=== PATIENT | female | born 2000 | race Caucasian/White ===

== ENCOUNTER 2019-01-29 12:28 | Inpatient (IN) | payer MEDICAID, OTHER ==
[~2019-01-29] VITALS: Ht 149.9 cm; Wt 61.2 kg
--- NOTE | 2019-01-29 12:32 | NUR ---
PATIENT AMBULATED TO BED 11
[2019-01-29 12:36] VITALS: BP 118/74
[2019-01-29] MEDS ORDERED: NACL 0.9% 1,000 ML IV SCH (12:49)
[2019-01-29] MEDS ORDERED: MORPHINE SULFATE 4 MG/ML SYR IVP ONE (12:50)
[2019-01-29] MEDS ORDERED: ONDANSETRON 4 MG/2 ML VIAL IVP ONE (12:50)
--- NOTE | 2019-01-29 12:51 | NUR ---
C/O GENERALIZED ABD PAIN X4 QUADRANTS STARTING TODAY, 12/18 AND CRAMPING ACCOMPANIED BY N/V. LBM TODAY - REGULAR PER PT. BOWEL SOUNDS PRESENT X4, ABDOMEN SOFT, FLAT AND TENDER TO PALPATION. BED IN LOW POSITION. SIDE RAIL UP X1,
--- NOTE | 2019-01-29 13:10 | NUR ---
PT RQ ONLY 1/2 DOSE OF MORPHINE TO BE GIVEN. GAVE PT 0.5MG, OKTHALIA'D BY DR. TATE
[2019-01-29 13:27] LABS: HEMOGLOBIN 14.4 g/dL (12.0-16.0); MEAN CORPUSCULAR HEMOGLOBIN 30 pg (27-31); MEAN CORPUSCULAR HGB CONC 34 g/dL (33-37); MEAN CORPUSCULAR VOLUME 88.5 fL (80-94); PLATELET COUNT (AUTO) 399 K/uL (140-450); RED BLOOD CELL COUNT(AUTO) 4.75 MIL/uL (4.20-5.40); RED CELL DISTRIBUTION WIDTH 12.5 % (11.6-13.7); WHITE BLOOD COUNT (AUTO) 15.7 K/uL (4.5-11.0)
[2019-01-29 13:37] LABS: BILIRUBIN,URINE 1+ (NEGATIVE); COLOR,URINE YELLOW (YELLOW); LEUKOCYTE ESTERASE ,URINE NEGATIVE (NEGATIVE); NITRITE, URINE NEGATIVE (NEGATIVE); UGLUCOSE NEGATIVE (NEGATIVE)
[2019-01-29 14:06] LABS: POTASSIUM 3.7 mmol/L (3.5-5.1)
[2019-01-29 14:07] LABS: ANION GAP 16.5 (8-16); CARBON DIOXIDE 22.2 mmol/L (21-32); CREATININE 0.6 mg/dL (0.6-1.3)
[2019-01-29 14:12] LABS: TOTAL BILIRUBIN 0.4 mg/dL (0.0-1.0)
[2019-01-29 14:13] LABS: ALBUMIN 3.9 g/dL (3.4-5.0)
[2019-01-29 14:14] LABS: LYMPHOCYTES % (MANUAL) 9 % (20-46); MONOCYTES % (MANUAL) 4 % (5-12)
[2019-01-29 14:15] LABS: BLOOD, URINE 1+ (NEGATIVE)
--- NOTE | 2019-01-29 14:15 | NUR ---
PT LEFT TO CT
[2019-01-29 14:16] LABS: RBC,URINE 0-5 /HPF (0-5); WBC,URINE 0-5 /HPF (0-5)
[2019-01-29 14:17] LABS: YEAST,URINE Rare /HPF (None Seen)
[2019-01-29 14:18] LABS: APPEARANCE,URINE SLIGHTLY HAZY (CLEAR)
--- NOTE | 2019-01-29 14:30 | NUR ---
PT RETURNED FROM CT
--- NOTE | 2019-01-29 14:48 | NUR ---
ADMINISTERED OTHER 2MG OF MORPHINE PER PT REQUEST FOR PAIN PER DR. TATE VERBAL ORDER.
[2019-01-29] MEDS ORDERED: PIPERACILLIN/TAZOBACTAM 3.375 GM in DEXTROSE 5% 50 ML IV ONE (14:50)
--- NOTE | 2019-01-29 15:00 | NUR ---
RE-EVAL OF 2MG MORPHINE, NADR
[2019-01-29] MEDS ORDERED: [UNRECOGNIZED DRUG - REMARK] PO (15:08)
[2019-01-29] MEDS ORDERED: PIPERACILLIN/TAZOBACTAM 3.375 GM VIAL IV ONE ×2 (15:13→21:34)
[2019-01-29] MEDS ORDERED: [UNRECOGNIZED DRUG - CODE] PO (15:23)
--- NOTE | 2019-01-29 15:45 | NUR ---
Patient will be admitted to care of DR. MCBRIDE. Admited to MED SURG. Will go to [facility]. Belongings list completed. Report to [facility].
[2019-01-29 15:50] VITALS: BP 105/76
--- NOTE | 2019-01-29 15:50 | NUR ---
RECEIVED PT FROM ER NURSE, PT IS AWAKE AND AMBULATED TO THE BED, IV LINE ON THE RT AC G. 20 ON SALINE LOCK, PT C/O PAIN OF A 6/10 RATE, VITAL SIGNS TAKEN AND IS STABLE, NO SIGN OF DISTRESS NOTED AND WILL MONITOR PT.
--- NOTE | 2019-01-29 15:56 | NUR ---
PT SIGNED THE CONSENT FOR LAPAROSCOPIC APPENDECTOMY WITH POSSIBLE OPEN, DR. MARKHAM CAME TO PT'S ROOM AND SPOKE TO PT AND PT VERBALIZED UNDERSTANDING.
--- NOTE | 2019-01-29 16:09 | NUR ---
DR. MCBRIDE CALLED AND MADE A TELEPHONE ORDER FOR THE PT. ORDERS READ BACK AND VERIFIED AND POSTED.
[2019-01-29] MEDS ORDERED: MORPHINE SULFATE 2 MG/ML SYR IVP PRN (16:15)
[2019-01-29] MEDS ORDERED: ONDANSETRON 4 MG/2 ML VIAL IVP PRN ×2 (16:15→21:20)
[2019-01-29] MEDS: LACTATED RINGERS 1,000 ML IV SCH ×3 (16:45→22:45)
--- NOTE | 2019-01-29 16:45 | NUR ---
MRSA SWAB DONE TO PT AND SAMPLE WAS SENT TO LAB.
[2019-01-29] MEDS ORDERED: PIPERACILLIN/TAZOBACTAM 3.375 GM in DEXTROSE 5% 50 ML IV SCH (18:00)
--- NOTE | 2019-01-29 18:50 | NUR ---
PRE-OP CHECKLIST DONE NOW.
--- NOTE | 2019-01-29 19:15 | NUR ---
ENDORSED PT TO NIGHTSHIFT NURSEARISTEO FOR CONTINUITY OF CARE.
--- NOTE | 2019-01-29 19:16 | NUR ---
RECD. RESTING IN BED, AWAKE, A/OX4. AMBULATORY TO BR. RESPIRATION EVEN AND UNLABORED. IV OF LR AT 150 ML/HR INFUSING RIGHT AC G20. AWARE OF PLANNED SURGERY TONIGHT. DENIES PAIN 0/10.
[2019-01-29 20:00] VITALS: BP 110/75
--- NOTE | 2019-01-29 20:00 | NUR ---
Patient's Plan of Care was discussed and reviewed with NUCLEAR POWERPLANT MECHANIC HELPER: Stephany Jacobs
--- NOTE | 2019-01-29 20:05 | NUR ---
TAKEN TO OR FOR LAP APPENDECTOMY ACCOMPANIED BY OR NURSES.
[2019-01-29] MEDS ORDERED: LIDOCAINE 1% 500 MG/50 ML VIAL ONE (20:09)
[2019-01-29] MEDS ORDERED: BUPIVACAINE-MPF 0.5% 30 ML VIAL INJ ONE (20:10)
[2019-01-29] MEDS ORDERED: BUPIVACAINE-MPF 0.25% 30 ML VIAL INJ ONE (20:11)
[2019-01-29] MEDS ORDERED: GLYCOPYRROLATE 0.2 MG/ML VIAL ONE (20:45)
[2019-01-29] MEDS ORDERED: ROCURONIUM 50 MG/5 ML VIAL IV ONE (20:45)
[2019-01-29] MEDS ORDERED: SEVOFLURANE 250 ML BTL INH ONE (20:45)
[2019-01-29] MEDS ORDERED: ONDANSETRON 4 MG/2 ML VIAL ONE (20:45)
[2019-01-29] MEDS ORDERED: PROPOFOL 200 MG/20 ML VIAL IV ONE (20:45)
[2019-01-29] MEDS ORDERED: NEOSTIGMINE 1:1000 10 MG/10 ML VIAL ONE (20:45)
[2019-01-29] MEDS ORDERED: DEXAMETHASONE 4 MG/ML VIAL ONE (20:45)
[2019-01-29] MEDS ORDERED: SUCCINYLCHOLINE CHLORIDE 200 MG/10 ML VIAL IVP ONE (20:45)
[2019-01-29] MEDS ORDERED: KETOROLAC 30 MG/ML VIAL ONE (20:45)
[2019-01-29] MEDS ORDERED: MIDAZOLAM 2 MG/2 ML VIAL ONE (21:06)
[2019-01-29] MEDS ORDERED: fentaNYL 0.05 MG/ML VIAL ONE (21:07)
[2019-01-29] MEDS ORDERED: MEPERIDINE 50 MG/ML SYR ONE (21:07)
[2019-01-29] MEDS ORDERED: HYDROmorphone 1 MG/ML AMP IVP PRN (21:20)
[2019-01-29] MEDS ORDERED: MEPERIDINE 25 MG/ML SYR IVP PRN (21:20)
[2019-01-29] MEDS ORDERED: diphenhydrAMINE 50 MG/ML VIAL IVP PRN (21:20)
--- NOTE | 2019-01-29 21:30 | NUR ---
TOLERATED WELL CLEAR LIQUID DIET.
[2019-01-29] MEDS ORDERED: HYDROmorphone 1 MG/ML AMP IM/IV PRN (21:55)
[2019-01-29 22:30] VITALS: BP 119/77
--- NOTE | 2019-01-29 22:30 | NUR ---
RECD. FROM OR, S/P LAP APPENDECTOMY. AWAKE, A/OX4. RESPIRATION EVEN AND UNLABORED. INCISION IN THE ABDOMEN, (3) COVERED WITH BAND AID DRESSING, ALL DRY AND INTACT. VS STABLE. ON CLEAR LIQUID DIET. DENIES PAIN 0/10.
[2019-01-29 23:30] VITALS: BP 113/65
[2019-01-29] MEDS: PIPERACILLIN/TAZOBACTAM 3.375 GM in DEXTROSE 5% 50 ML IV SCH (23:39)
--- NOTE | 2019-01-30 | NUR ---
STATED SHE FEELS WEAK. INSTRUCTED TO CALL NURSE FOR ASSISTANCE IF SHE WILL GET OUT OF BED TO PREVENT FALLS. VERBALIZED UNDERSTANDING.
[2019-01-30 00:30] VITALS: BP 113/65
[2019-01-30] MEDS: HYDROcodone/APAP 5/325 MG 1 TAB TAB PO PRN ×2 (01:18→14:40)
[2019-01-30 02:30] VITALS: BP 96/55
[2019-01-30] MEDS: LACTATED RINGERS 1,000 ML IV SCH ×5 (03:36→13:57)
[2019-01-30 04:12] VITALS: BP_SYST 128; BP_SYST 96; BP_DIAS 55; BP_DIAS 73
[2019-01-30] MEDS: PIPERACILLIN/TAZOBACTAM 3.375 GM in DEXTROSE 5% 50 ML IV SCH ×2 (04:51→09:30)
--- NOTE | 2019-01-30 07:10 | NUR ---
RECEIVED PT FROM [address] VENDOR NURSE, PT IS AWAKE AND LYING ON THE BED, IV LINE ON THE RT AC G. 20 WITH LR INFUSING AT 120ML/HR, 3 SURGICAL INCISIONS INTACT,NO DRAINAGE, SIDE RAILS ARE UP AND CALL LIGHT WITHIN REACH, PT IS ON O2 2L NC, PT DENIES PAIN, WILL CONTINUE TO MONITOR PT.
[2019-01-30 07:11] LABS: ANION GAP 15.5 (8-16); CARBON DIOXIDE 22.2 mmol/L (21-32); CREATININE 0.7 mg/dL (0.6-1.3); POTASSIUM 3.7 mmol/L (3.5-5.1)
[2019-01-30 07:21] LABS: HEMATOCRIT 38.4 % (36-48); HEMOGLOBIN 12.9 g/dL (12.0-16.0); MEAN CORPUSCULAR HEMOGLOBIN 30 pg (27-31); MEAN CORPUSCULAR HGB CONC 34 g/dL (33-37); MEAN CORPUSCULAR VOLUME 89.2 fL (80-94); PLATELET COUNT (AUTO) 381 K/uL (140-450); RED CELL DISTRIBUTION WIDTH 12.4 % (11.6-13.7); WHITE BLOOD COUNT (AUTO) 12.4 K/uL (4.5-11.0)
[2019-01-30 08:00] VITALS: BP 105/64
--- NOTE | 2019-01-30 08:01 | NUR ---
PATIENT HAS BEEN SCREENED AND CATEGORIZED LOW NUTRITION RISK. PATIENT WILL BE SEEN WITHIN 7 DAYS OF ADMISSION. 02/05/[address]
--- NOTE | 2019-01-30 09:30 | NUR ---
PT IS AWAKE AND STEPMOTHER ON THE BEDSIDE, IVPB MEDICATION WAS GIVEN, WILL MONITOR PT.
[2019-01-30 09:41] LABS: BASOPHILS % (MANUAL) 0 % (0-2); EOSINOPHILS % (MANUAL) 0 % (0-4); LYMPHOCYTES % (MANUAL) 5 % (20-46); MONOCYTES % (MANUAL) 3 % (5-12)
--- NOTE | 2019-01-30 11:00 | NUR ---
PT IS SLEEPING NOW, NO SIGN OF DISTRESS NOTED.
[2019-01-30] MEDS ORDERED: IBUP-2213 PO (13:07)
--- NOTE | 2019-01-30 13:30 | NUR ---
PT AMBULATED TO THE BATHROOM AND VERBALIZED THAT SHE HAD PASSED GAS.
--- NOTE | 2019-01-30 14:48 | NUR ---
CONTACTED PATIENT'S PCP DR. NUBIA MONCADA OFFICE AT [phone] TO SCHEDULE POST DISCHARGE VISIT, ABLE TO SPEAK TO ROSE. SHE PROVIDED ME WITH FEB 05, 2019 AT 1130 AM. COPY OF APPOINTMENT PROVIDED TO THE PATIENT.
[2019-01-30 16:00] VITALS: BP 110/63
--- NOTE | 2019-01-30 16:20 | NUR ---
DISCHARGED PT TO HOME VIA WHEELCHAIR, DISCHARGE TEACHINGS AND INSTRUCTIONS GIVEN TO PT AND VERBALIZED UNDERSTANDING, IV LINE AND ARM BAND REMOVED AND PT IS STABLE AT THIS TIME.
== END 2019-01-30 16:20 | disposition home or self-care (01) | DRG 234 ==
LOC: MED 12:28 → MTU 15:19
PROVIDERS: ADMIT Internal Medicine; ATTEND Internal Medicine
PROC: 0DTJ4ZZ Resection of Appendix, Percutaneous Endoscopic Approach (ICD-10-PCS; principal; 2019-01-29 20:00)
DX: K35.80 Unspecified acute appendicitis (principal); E86.0 Dehydration
CPT/HCPCS: 36415; 80048; 80053; 81001; 82374; 83690; 84703; 85025; 87081; 88304; 96361; 96365; 96375; 99285; J0330; J1100; J1885; J2001; J2175; J2250; J2270; J2405; J2543; J2704; J2710; J3010; J3490; J7030; J7060; J7120; Q9967